=== PATIENT | male | born 1980 | race African-American/Black ===

== ENCOUNTER 2020-04-16 23:59 | Emergency (ER) | payer SELFPAY ==
[~2020-04-16] VITALS: Ht 185.4 cm; Wt 96.0 kg
[2020-04-17] MEDS ORDERED: MAGNESIUM/ALUMINUM HYDROXIDE/SIMETHICONE 30ML UDC PO STA (00:59)
[2020-04-17] MEDS ORDERED: VISCOUS LIDOCAINE 2% 15 ML UDC PO STA (00:59)
[2020-04-17 01:34] LABS: CHLORIDE 107 mEq/L (98-107)
[2020-04-17 01:35] LABS: BASOPHILS % 1.2 % (0.0-2.0); EOSINOPHILS % 5.4 % (0.0-5.0); HEMATOCRIT. 35.5 % (42.0-52.0); HEMOGLOBIN. 12.1 g/dL (14.0-18.0); MEAN CORPUSCULAR HEMOGLOBIN 31.4 pg (28.0-32.0); MEAN CORPUSCULAR VOLUME 92.3 fL (80.0-94.0); MONOCYTES % 11.7 % (2.0-8.0); NEUTROPHILS % 43.7 % (40.0-76.0); PLATELET 360 x1000/uL (130-400); RED BLOOD CELL COUNT 3.85 mill/uL (4.7-6.1); RED CELL DISTRIBUTION WIDTH 13.5 % (11.6-14.6)
[2020-04-17 01:38] LABS: ETHANOL BLOOD < 10 mg/dL
[2020-04-17 04:45] VITALS: BP 116/80
== END 2020-04-17 05:30 | disposition home or self-care (01) ==
LOC: ER 23:59
DX: R10.9 Unspecified abdominal pain (principal); E87.6 Hypokalemia; F31.9 Bipolar disorder, unspecified; I10 Essential (primary) hypertension; F20.9 Schizophrenia, unspecified; Z88.6 Allergy status to analgesic agent
CPT/HCPCS: 36415; 80053; 80320; 82962; 83605; 85025; 93005; 99284; G0480